=== PATIENT | female | born 1955 | race Caucasian/White ===

== ENCOUNTER → 2018-05-09 | Outpatient (CLI) | payer BC | END | disposition home or self-care (01) | LOC: CFH 10:06 | PROVIDERS: ATTEND Internal Medicine | DX: Z12.31 Encounter for screening mammogram for malignant neoplasm of breast (principal) | CPT/HCPCS: 77063; 77067 ==

== ENCOUNTER 2019-11-21 13:55 | Inpatient (IN) | payer OTHER, MEDICARE ==
[~2019-11-21] VITALS: Ht 162.6 cm; Wt 80.7 kg
--- NOTE | 2019-11-21 14:02 | NUR ---
TO [facility] TODAY WITH RUQ ABD PAIN, "FEELING SICK", PT FOUND TO HAVE ELEVATED LIVER ENZYMES AND HAD NEAR SYNCOPAL EPISODE. PT TO ED VIA [facility] 4MG PO. HX 5MO NO ETOH, GERD. PT PLACED ON MONITOR. CALL LIGHT WITHIN REACH.
--- NOTE | 2019-11-21 14:16 | NUR ---
IV ESTABLISHED AND BLOOD DRAWN AND SENT TO LAB
[2019-11-21] MEDS ORDERED: SODIUM CHLORIDE FLUSH 10ML SYR IVF ONE (14:30)
[2019-11-21 14:37] LABS: MEAN CORPUSCULAR HEMOGLOBIN 28.7 pg (27.0-34.8); MEAN CORPUSCULAR VOLUME 84.2 fL (80-100); MEAN PLATELET VOLUME 10.4 fL (7.4-10.4); PLATELET COUNT 215 x10^3/uL (130-400); RED BLOOD COUNT 4.63 x10^6/uL (3.82-5.3); RED CELL DISTRIBUTION WIDTH 15.1 % (9.6-15.2)
[2019-11-21 14:47] LABS: INTERNATIONAL NORMALIZED RATIO 0.94 (0.93-1.1)
[2019-11-21 15:01] LABS: ALANINE AMINOTRANSFERASE 292 U/L (12-78); ALBUMIN 3.6 g/dL (3.4-5.0); ANION GAP 8 mmol/L (5-15); CALCIUM 9.6 mg/dL (8.5-10.1); CHLORIDE 108 mmol/L (98-107); CREATININE 0.71 mg/dL (0.55-1.02)
[2019-11-21 15:04] LABS: ALKALINE PHOSPHATASE 350 U/L (45-117); BILIRUBIN,TOTAL 8.4 mg/dL (0.2-1.0); TOTAL PROTEIN 7.5 g/dL (6.4-8.2)
[2019-11-21 15:12] LABS: MICROSCOPIC AUTO
[2019-11-21 15:14] LABS: CULTURE INDICATED? YES
--- NOTE | 2019-11-21 15:16 | NUR ---
pt resting in gurney, awaiting results. daughter and son at bedside. no needs at this time.
[2019-11-21 15:23] LABS: MD YES
[2019-11-21 15:34] LABS: BAND#(MANUAL) 0.62 x10^3/uL; BANDS%(MANUAL) 6 % (0-7); LYMPH#(MANUAL) 0.62 x10^3/uL (1-3.4); LYMPHS% (MANUAL) 6 % (22-44); MONOS#(MANUAL) 0.41 x10^3/uL (0.3-2.7); MONOS% (MANUAL) 4 % (2-9); SEG#(MANUAL) 8.65 x10^3/uL (1.8-6.8); SEGS% (MANUAL) 84 % (42-75)
[2019-11-21 15:35] LABS: <PLATELET ESTIMATE> ADEQUATE; <PLT MORPHOLOGY> NORMAL PLT MORPH; <RBC MORPHOLOGY> NORMAL
[2019-11-21] MEDS ORDERED: OMNIPAQUE 350 MG/ML, 100ML BOTTLE ONE ×2 (15:49→18:39)
--- NOTE | 2019-11-21 16:16 | NUR ---
PT RESTING IN [facility], PT TO BE ADMITTED. AWAITING BED PLACEMENT.
[2019-11-21] MEDS ORDERED: SERT100T32 PO (16:25)
[2019-11-21] MEDS ORDERED: NITR100C56 PO (16:25)
[2019-11-21] MEDS ORDERED: ALBU8.5H8 INH (16:25)
[2019-11-21] MEDS ORDERED: BIOT5CAP3 PO (16:25)
[2019-11-21] MEDS ORDERED: LANS15CA60 PO (16:25)
[2019-11-21] MEDS ORDERED: MULT-717 PO (16:25)
[2019-11-21] MEDS: SODIUM CHLORIDE 0.9% 1,000 ML IV SCH (17:14)
--- NOTE | 2019-11-21 17:15 | NUR ---
pt resting in [facility], admitting md at bedside
[2019-11-21] MEDS ORDERED: hydrALAzine 20 MG/ML, 1ML IVPush PRN (17:30)
[2019-11-21] MEDS ORDERED: POLYETHYLENE GLYCOL 17 GM PACKET PO PRN (17:30)
[2019-11-21] MEDS ORDERED: TEMPLATE NON-FORMULARY MED. (Albuterol Sulfate (Proair Hfa) 90 MCG) INH PRN (17:30)
[2019-11-21] MEDS ORDERED: ONDANSETRON 2MG/ML, 2ML IVPush PRN (17:30)
[2019-11-21] MEDS ORDERED: PROMETHAZINE 25 MG/ML, 1ML IM PRN (17:30)
[2019-11-21] MEDS ORDERED: POTASSIUM CHLORIDE 40 MEQ in SODIUM CHLORIDE 0.9% 500 ML IV ONE (17:30)
[2019-11-21] MEDS ORDERED: DOCUSATE 100 MG CAPSULE PO PRN (17:30)
[2019-11-21] MEDS ORDERED: BISACODYL 10 MG SUPP PR PRN (17:30)
[2019-11-21] MEDS ORDERED: ONDANSETRON ODT 4 MG PO PRN (17:30)
--- NOTE | 2019-11-21 17:41 | NUR ---
SUREGON AT BEDSIDE
[2019-11-21 18:04] LABS: FREE T4 (FREE THYROXINE) 1.32 ng/dL (0.76-1.46)
--- NOTE | 2019-11-21 18:12 | NUR ---
REQ FOR IVANS SENT TO PHARMACY
--- NOTE | 2019-11-21 18:21 | NUR ---
pt to ct
--- NOTE | 2019-11-21 18:26 | NUR ---
ATTEMPT TO CALL REPORT X1, NO ANSWER
--- NOTE | 2019-11-21 18:39 | NUR ---
REPORT TO ABEL RN, ROOM DIRTY, RTG WHEN ROOM CLEAN
[2019-11-21] MEDS ORDERED: IBUPROFEN 800 MG TABLET ONE (19:06)
--- NOTE | 2019-11-21 19:11 | NUR ---
PT TEMP 101.3, DR FLORES AWARE. 800 MG IBU GIVEN.
[2019-11-21 19:30] VITALS: BP 144/75
[2019-11-21] MEDS ORDERED: IBUPROFEN 800 MG TABLET PO ONE (19:30)
[2019-11-21 20:11] VITALS: BP 144/75
[2019-11-21] MEDS: ERTAPENEM 1 GM in SODIUM CHLORIDE 0.9% 50 ML IV SCH (20:41)
[2019-11-21] MEDS: morphine SULFATE 10 MG/ML, 1ML IVPush PRN (20:42)
[2019-11-22 02:10] VITALS: BP 108/65
[2019-11-22 04:35] LABS: MEAN CORPUSCULAR HGB CONC 32.3 g/dL (32.4-35.8); MEAN CORPUSCULAR VOLUME 86.7 fL (80-100); MEAN PLATELET VOLUME 10.5 fL (7.4-10.4); PLATELET COUNT 194 x10^3/uL (130-400); RED CELL DISTRIBUTION WIDTH 14.9 % (9.6-15.2)
[2019-11-22 04:46] LABS: ALANINE AMINOTRANSFERASE 242 U/L (12-78); ALBUMIN 2.9 g/dL (3.4-5.0); ANION GAP 6 mmol/L (5-15); CHLORIDE 111 mmol/L (98-107); CREATININE 0.56 mg/dL (0.55-1.02)
[2019-11-22 04:48] LABS: ALKALINE PHOSPHATASE 306 U/L (45-117); BILIRUBIN,TOTAL 8.9 mg/dL (0.2-1.0); CHOL/HDL RATIO 45.5; CHOLESTEROL, TOTAL 364 mg/dL (140-239); HDL CHOL % 2 % (28-40); HDL CHOLESTEROL (DIRECT) 8 mg/dL (40-60); TOTAL PROTEIN 6.3 g/dL (6.4-8.2)
[2019-11-22 04:50] LABS: LDL CHOLESTEROL,CALCULATED 334 mg/dL (54-169); LDL/HDL RATIO 41.8 (0.5-3.0); TRIGLYCERIDES 108 mg/dL (50-200); VLDL CHOLESTEROL 22 mg/dL (0-25)
[2019-11-22 05:47] LABS: MD YES
[2019-11-22 05:48] LABS: BAND#(MANUAL) 0.18 x10^3/uL; BANDS%(MANUAL) 2 % (0-7); LYMPH#(MANUAL) 0.53 x10^3/uL (1-3.4); LYMPHS% (MANUAL) 6 % (22-44); MONOS#(MANUAL) 0.44 x10^3/uL (0.3-2.7); MONOS% (MANUAL) 5 % (2-9); MYELOCYTES# (MANUAL) 0.09 x10^3/uL (0-0); MYELOCYTES% (MANUAL) 1 % (0-0); SEG#(MANUAL) 7.57 x10^3/uL (1.8-6.8); SEGS% (MANUAL) 86 % (42-75)
[2019-11-22 05:49] LABS: <PLATELET ESTIMATE> ADEQUATE; <PLT MORPHOLOGY> NORMAL PLT MORPH; <RBC MORPHOLOGY> NORMAL
[2019-11-22 06:47] LABS: BILIRUBIN, DIRECT 7.3 mg/dL (0.1-0.2)
[2019-11-22 06:48] LABS: BILIRUBIN,INDIRECT 1.8 mg/dL (0.0-2.0); BILIRUBIN,TOTAL 9.1 mg/dL (0.2-1.0)
[2019-11-22 07:42] VITALS: BP 125/77
[2019-11-22] MEDS: PANTOPRAZOLE 40 MG IV IVPush SCH (09:33)
[2019-11-22] MEDS: SERTRALINE 100MG TABLET PO SCH (09:33)
[2019-11-22] MEDS: SODIUM CHLORIDE 0.9% 1,000 ML IV SCH (09:33)
[2019-11-22] MEDS: morphine SULFATE 10 MG/ML, 1ML IVPush PRN ×2 (11:41→19:33)
[2019-11-22 12:54] VITALS: BP 124/75
[2019-11-22] MEDS: OXYcodone IR 5MG TABLET PO PRN ×2 (13:26→22:15)
[2019-11-22] MEDS: LACTATED RINGERS 1,000 ML IV SCH (14:56)
[2019-11-22 18:40] VITALS: BP 115/68
[2019-11-22] MEDS: ERTAPENEM 1 GM in SODIUM CHLORIDE 0.9% 50 ML IV SCH (22:15)
[2019-11-23 00:59] VITALS: BP 106/54
[2019-11-23] MEDS: LACTATED RINGERS 1,000 ML IV SCH ×2 (03:42→21:40)
[2019-11-23] MEDS: morphine SULFATE 10 MG/ML, 1ML IVPush PRN ×3 (03:50→20:31)
[2019-11-23 06:26] LABS: MEAN CORPUSCULAR HEMOGLOBIN 28.6 pg (27.0-34.8); MEAN CORPUSCULAR HGB CONC 33.8 g/dL (32.4-35.8); MEAN CORPUSCULAR VOLUME 84.6 fL (80-100); MEAN PLATELET VOLUME 11.1 fL (7.4-10.4); PLATELET COUNT 175 x10^3/uL (130-400); RED BLOOD COUNT 3.93 x10^6/uL (3.82-5.3); RED CELL DISTRIBUTION WIDTH 15.6 % (9.6-15.2)
[2019-11-23 06:35] LABS: ALBUMIN 2.6 g/dL (3.4-5.0); ANION GAP 7 mmol/L (5-15); CHLORIDE 108 mmol/L (98-107)
[2019-11-23 06:38] LABS: ALANINE AMINOTRANSFERASE 224 U/L (12-78); ALKALINE PHOSPHATASE 314 U/L (45-117); BILIRUBIN,TOTAL 9.1 mg/dL (0.2-1.0); CREATININE 0.54 mg/dL (0.55-1.02); MD YES; TOTAL PROTEIN 6.2 g/dL (6.4-8.2)
[2019-11-23 06:40] LABS: LYMPHS% (MANUAL) 14 % (22-44); MONOS#(MANUAL) 0.34 x10^3/uL (0.3-2.7); MONOS% (MANUAL) 6 % (2-9); SEG#(MANUAL) 4.56 x10^3/uL (1.8-6.8); SEGS% (MANUAL) 80 % (42-75)
[2019-11-23 06:41] LABS: <PLATELET ESTIMATE> ADEQUATE; <RBC MORPHOLOGY> NORMAL
[2019-11-23 06:42] LABS: LARGE PLATELETS 1+
[2019-11-23 06:57] VITALS: BP 123/75
[2019-11-23] MEDS: PANTOPRAZOLE 40 MG IV IVPush SCH (09:01)
[2019-11-23] MEDS: SERTRALINE 100MG TABLET PO SCH (09:01)
[2019-11-23] MEDS ORDERED: DIPHENHYDRAMINE 25 MG CAPSULE PO PRN (12:00)
[2019-11-23] MEDS ORDERED: PROPOFOL 50 ML ONE (13:53)
[2019-11-23] MEDS ORDERED: FENTANYL PF 250 MCG/5ML ONE (13:54)
[2019-11-23] MEDS ORDERED: PROMETHAZINE 25 MG/ML, 1ML IV PRN ×2 (14:30→15:30)
[2019-11-23] MEDS ORDERED: MORPHINE SULFATE 4 MG/ML, 1ML IVPush PRN (14:30)
[2019-11-23] MEDS ORDERED: ONDANSETRON ODT 8 MG PO PRN ×2 (14:30→15:30)
[2019-11-23] MEDS ORDERED: EPHEDRINE 50 MG/ML, 1ML IM PRN ×2 (14:30→15:30)
[2019-11-23] MEDS ORDERED: DIAZEPAM 5 MG/ML, 2ML IVPush PRN ×2 (14:30→15:30)
[2019-11-23] MEDS ORDERED: DIPHENHYDRAMINE 50 MG/ML, 1ML IVPush PRN ×2 (14:30→15:30)
[2019-11-23] MEDS ORDERED: hydrALAzine 20 MG/ML, 1ML IV PRN ×2 (14:30→15:30)
[2019-11-23] MEDS ORDERED: OXYcodone 5 MG/5 ML ORAL.SOL UDC PO PRN (14:30)
[2019-11-23] MEDS ORDERED: FENTANYL PF 100 MCG/2ML IV PRN ×2 (14:30→15:30)
[2019-11-23] MEDS ORDERED: ONDANSETRON 2MG/ML, 2ML IV PRN ×2 (14:30→15:30)
[2019-11-23] MEDS ORDERED: METOPROLOL 1 MG/ML, 5ML IV PRN ×2 (14:30→15:30)
[2019-11-23] MEDS ORDERED: MEPERIDINE/PF 25MG/ML,1ML IVPush PRN (14:30)
[2019-11-23] MEDS ORDERED: EPHEDRINE 50 MG/ML, 1ML IVPush PRN ×2 (14:30→15:30)
[2019-11-23] MEDS ORDERED: MIDAZOLAM 1 MG/ML, 2ML ONE (14:56)
[2019-11-23] MEDS ORDERED: ROCURONIUM 10MG/ML,5ML ONE (14:58)
[2019-11-23] MEDS ORDERED: MIDAZOLAM 1 MG/ML, 2ML IV PRN (15:30)
[2019-11-23] MEDS ORDERED: HYDROmorphone 2 MG/ML, 1ML IVPush PRN (15:30)
[2019-11-23 19:38] VITALS: BP 122/72
[2019-11-23] MEDS ORDERED: MORPHINE SULFATE 4 MG/ML, 1ML ONE (20:28)
[2019-11-23] MEDS: ERTAPENEM 1 GM in SODIUM CHLORIDE 0.9% 50 ML IV SCH (21:32)
[2019-11-24 00:18] VITALS: BP 126/73
[2019-11-24] MEDS: OXYcodone IR 5MG TABLET PO PRN ×3 (00:33→20:51)
[2019-11-24 04:41] LABS: MEAN CORPUSCULAR HEMOGLOBIN 28.6 pg (27.0-34.8); MEAN CORPUSCULAR HGB CONC 33.5 g/dL (32.4-35.8); MEAN CORPUSCULAR VOLUME 85.6 fL (80-100); MEAN PLATELET VOLUME 10.6 fL (7.4-10.4); PLATELET COUNT 198 x10^3/uL (130-400); RED BLOOD COUNT 3.77 x10^6/uL (3.82-5.3); RED CELL DISTRIBUTION WIDTH 15.7 % (9.6-15.2)
[2019-11-24 04:52] LABS: ALANINE AMINOTRANSFERASE 187 U/L (12-78); ALBUMIN 2.4 g/dL (3.4-5.0); ANION GAP 4 mmol/L (5-15); CALCIUM 8.8 mg/dL (8.5-10.1); CHLORIDE 107 mmol/L (98-107); CREATININE 0.55 mg/dL (0.55-1.02)
[2019-11-24 04:54] LABS: ALKALINE PHOSPHATASE 347 U/L (45-117); TOTAL PROTEIN 5.9 g/dL (6.4-8.2)
[2019-11-24 05:08] LABS: MD YES
[2019-11-24 05:11] LABS: BAND#(MANUAL) 0.06 x10^3/uL; BANDS%(MANUAL) 1 % (0-7); LYMPH#(MANUAL) 1.22 x10^3/uL (1-3.4); LYMPHS% (MANUAL) 20 % (22-44); MONOS#(MANUAL) 0.67 x10^3/uL (0.3-2.7); MONOS% (MANUAL) 11 % (2-9); SEG#(MANUAL) 4.15 x10^3/uL (1.8-6.8); SEGS% (MANUAL) 68 % (42-75)
[2019-11-24 05:13] LABS: <PLATELET ESTIMATE> ADEQUATE; <PLT MORPHOLOGY> NORMAL PLT MORPH; <RBC MORPHOLOGY> NORMAL
[2019-11-24 07:23] VITALS: BP 134/72
[2019-11-24] MEDS: PANTOPRAZOLE 40 MG IV IVPush SCH (10:13)
[2019-11-24] MEDS: SERTRALINE 100MG TABLET PO SCH (10:13)
[2019-11-24] MEDS: LACTATED RINGERS 1,000 ML IV SCH (10:13)
[2019-11-24 12:34] VITALS: BP 143/65
[2019-11-24] MEDS ORDERED: LIDOCAINE 1%, 20ML ONE ×2 (12:50→14:15)
[2019-11-24] MEDS ORDERED: MIDAZOLAM 1 MG/ML, 5ML ONE ×2 (13:12→13:13)
[2019-11-24] MEDS ORDERED: FENTANYL PF 100 MCG/2ML ONE (13:12)
[2019-11-24] MEDS ORDERED: NALOXONE 1 MG/ML, 2ML ONE (13:13)
[2019-11-24] MEDS ORDERED: FLUMAZENIL 0.1 MG/1 ML, 5ML ONE (13:13)
[2019-11-24] MEDS ORDERED: DIPHENHYDRAMINE 50 MG/ML, 1ML ONE (13:46)
[2019-11-24] MEDS: morphine SULFATE 10 MG/ML, 1ML IVPush PRN ×2 (15:54→18:47)
[2019-11-24 18:32] VITALS: BP 107/64
[2019-11-24] MEDS: ERTAPENEM 1 GM in SODIUM CHLORIDE 0.9% 50 ML IV SCH (20:51)
[2019-11-25 00:33] VITALS: BP 96/60
[2019-11-25] MEDS: LACTATED RINGERS 1,000 ML IV SCH ×2 (01:48→16:36)
[2019-11-25] MEDS: OXYcodone IR 5MG TABLET PO PRN ×4 (01:48→21:04)
[2019-11-25 07:24] VITALS: BP 101/64
[2019-11-25 07:47] LABS: ALANINE AMINOTRANSFERASE 167 U/L (12-78); ALBUMIN 2.3 g/dL (3.4-5.0); ANION GAP 7 mmol/L (5-15); CALCIUM 8.7 mg/dL (8.5-10.1); CHLORIDE 105 mmol/L (98-107); CREATININE 0.62 mg/dL (0.55-1.02)
[2019-11-25 07:50] LABS: ALKALINE PHOSPHATASE 368 U/L (45-117); BILIRUBIN,TOTAL 5.3 mg/dL (0.2-1.0); TOTAL PROTEIN 5.9 g/dL (6.4-8.2)
[2019-11-25 08:28] LABS: MD YES; MEAN CORPUSCULAR HEMOGLOBIN 28.4 pg (27.0-34.8); MEAN CORPUSCULAR HGB CONC 32.9 g/dL (32.4-35.8); MEAN CORPUSCULAR VOLUME 86.4 fL (80-100); MEAN PLATELET VOLUME 10.3 fL (7.4-10.4); PLATELET COUNT 218 x10^3/uL (130-400); RED BLOOD COUNT 3.66 x10^6/uL (3.82-5.3); RED CELL DISTRIBUTION WIDTH 15.3 % (9.6-15.2)
[2019-11-25 08:29] LABS: BAND#(MANUAL) 0.77 x10^3/uL; BANDS%(MANUAL) 6 % (0-7); MONOS% (MANUAL) 7 % (2-9); SEG#(MANUAL) 10.75 x10^3/uL (1.8-6.8); SEGS% (MANUAL) 84 % (42-75)
[2019-11-25 08:30] LABS: LYMPH#(MANUAL) 0.38 x10^3/uL (1-3.4); LYMPHS% (MANUAL) 3 % (22-44)
[2019-11-25 08:31] LABS: STOMATOCYTES 1+
[2019-11-25 08:32] LABS: <PLATELET ESTIMATE> ADEQUATE; <PLT MORPHOLOGY> NORMAL PLT MORPH
[2019-11-25] MEDS: PANTOPRAZOLE 40 MG IV IVPush SCH (10:28)
[2019-11-25] MEDS: SERTRALINE 100MG TABLET PO SCH (10:28)
[2019-11-25 13:02] VITALS: BP 96/61
[2019-11-25 19:25] VITALS: BP 107/63
[2019-11-25] MEDS: ERTAPENEM 1 GM in SODIUM CHLORIDE 0.9% 50 ML IV SCH (20:59)
[2019-11-25] MEDS: morphine SULFATE 10 MG/ML, 1ML IVPush PRN (22:40)
[2019-11-26] MEDS: OXYcodone IR 5MG TABLET PO PRN ×3 (02:23→17:51)
[2019-11-26 02:26] VITALS: BP 132/76
[2019-11-26] MEDS: LACTATED RINGERS 1,000 ML IV SCH ×2 (04:22→17:53)
[2019-11-26 04:47] LABS: MEAN CORPUSCULAR HEMOGLOBIN 28.3 pg (27.0-34.8); MEAN CORPUSCULAR HGB CONC 33.3 g/dL (32.4-35.8); MEAN CORPUSCULAR VOLUME 84.9 fL (80-100); MEAN PLATELET VOLUME 10.8 fL (7.4-10.4); PLATELET COUNT 230 x10^3/uL (130-400); RED BLOOD COUNT 3.35 x10^6/uL (3.82-5.3); RED CELL DISTRIBUTION WIDTH 15.3 % (9.6-15.2)
[2019-11-26 04:55] LABS: CHLORIDE 104 mmol/L (98-107)
[2019-11-26 05:01] LABS: ALANINE AMINOTRANSFERASE 112 U/L (12-78); ALBUMIN 2.1 g/dL (3.4-5.0); ALKALINE PHOSPHATASE 273 U/L (45-117); ANION GAP 5 mmol/L (5-15); BILIRUBIN,TOTAL 3.8 mg/dL (0.2-1.0); CALCIUM 8.2 mg/dL (8.5-10.1); TOTAL PROTEIN 5.4 g/dL (6.4-8.2)
[2019-11-26 05:05] LABS: MD YES
[2019-11-26 05:07] LABS: <PLATELET ESTIMATE> ADEQUATE; <PLT MORPHOLOGY> NORMAL PLT MORPH; <RBC MORPHOLOGY> NORMAL; LYMPH#(MANUAL) 1.38 x10^3/uL (1-3.4); LYMPHS% (MANUAL) 16 % (22-44); MONOS% (MANUAL) 7 % (2-9); SEG#(MANUAL) 6.62 x10^3/uL (1.8-6.8); SEGS% (MANUAL) 77 % (42-75)
[2019-11-26 07:08] VITALS: BP 120/72
[2019-11-26] MEDS: morphine SULFATE 10 MG/ML, 1ML IVPush PRN ×3 (09:49→21:34)
[2019-11-26] MEDS: PANTOPRAZOLE 40 MG IV IVPush SCH (10:55)
[2019-11-26] MEDS: SERTRALINE 100MG TABLET PO SCH (10:56)
[2019-11-26] MEDS ORDERED: POTASSIUM CHLORIDE 20 MEQ TAB.ER.PRT PO ONE ×2 (11:00→15:00)
[2019-11-26] MEDS: CEFTRIAXONE PMX 2GM/50ML 50 ML IV SCH (11:21)
[2019-11-26 14:55] VITALS: BP 128/72
[2019-11-26 19:16] VITALS: BP 135/76
[2019-11-27 01:31] VITALS: BP 116/70
[2019-11-27 04:36] LABS: MEAN CORPUSCULAR HEMOGLOBIN 28.6 pg (27.0-34.8); MEAN CORPUSCULAR HGB CONC 33.3 g/dL (32.4-35.8); MEAN CORPUSCULAR VOLUME 85.9 fL (80-100); MEAN PLATELET VOLUME 9.6 fL (7.4-10.4); PLATELET COUNT 288 x10^3/uL (130-400); RED BLOOD COUNT 3.43 x10^6/uL (3.82-5.3); RED CELL DISTRIBUTION WIDTH 15.9 % (9.6-15.2)
[2019-11-27 04:41] LABS: ALANINE AMINOTRANSFERASE 87 U/L (12-78); ALBUMIN 2.2 g/dL (3.4-5.0); ANION GAP 5 mmol/L (5-15); CALCIUM 8.7 mg/dL (8.5-10.1); CHLORIDE 107 mmol/L (98-107); CREATININE 0.46 mg/dL (0.55-1.02)
[2019-11-27 04:43] LABS: ALKALINE PHOSPHATASE 247 U/L (45-117); BILIRUBIN,TOTAL 3.1 mg/dL (0.2-1.0); TOTAL PROTEIN 6.1 g/dL (6.4-8.2)
[2019-11-27 05:30] LABS: MD YES
[2019-11-27 05:32] LABS: <RBC MORPHOLOGY> NORMAL; BAND#(MANUAL) 0.07 x10^3/uL; BANDS%(MANUAL) 1 % (0-7); BASOS#(MANUAL) 0.07 x10^3/uL (0-0.1); BASOS% (MANUAL) 1 % (0-1); LYMPH#(MANUAL) 1.68 x10^3/uL (1-3.4); LYMPHS% (MANUAL) 23 % (22-44); MONOS#(MANUAL) 0.22 x10^3/uL (0.3-2.7); MONOS% (MANUAL) 3 % (2-9); REACTIVE LYMPHS # (MANUAL) 0.07 x10^3/uL (0-0); REACTIVE LYMPHS % (MANUAL) 1 % (0-0); SEG#(MANUAL) 5.18 x10^3/uL (1.8-6.8); SEGS% (MANUAL) 71 % (42-75)
[2019-11-27 05:33] LABS: <PLATELET ESTIMATE> ADEQUATE; <PLT MORPHOLOGY> NORMAL PLT MORPH
[2019-11-27 07:39] VITALS: BP 131/75
[2019-11-27] MEDS: PANTOPRAZOLE 40 MG IV IVPush SCH (08:52)
[2019-11-27] MEDS: LACTATED RINGERS 1,000 ML IV SCH (08:53)
[2019-11-27] MEDS: SERTRALINE 100MG TABLET PO SCH (08:53)
[2019-11-27] MEDS ORDERED: HYDROmorphone 2 MG/ML, 1ML IVPush PRN (09:30)
[2019-11-27] MEDS ORDERED: MEPERIDINE/PF 25MG/ML,1ML IVPush PRN (09:30)
[2019-11-27] MEDS ORDERED: hydrALAzine 20 MG/ML, 1ML IV PRN (09:30)
[2019-11-27] MEDS ORDERED: LABETALOL 5MG/ML, 20ML IV PRN (09:30)
[2019-11-27] MEDS ORDERED: PROMETHAZINE 25 MG/ML, 1ML IV PRN (09:30)
[2019-11-27] MEDS ORDERED: FENTANYL PF 100 MCG/2ML IV PRN (09:30)
[2019-11-27] MEDS ORDERED: HALOPERIDOL 5 MG/ML IV PRN (09:30)
[2019-11-27] MEDS ORDERED: LEVO750T6 PO (10:36)
[2019-11-27] MEDS: CEFTRIAXONE PMX 2GM/50ML 50 ML IV SCH (11:52)
[2019-11-27 13:04] VITALS: BP 156/76
[2019-11-27] MEDS: OXYcodone IR 5MG TABLET PO PRN ×2 (13:18→16:48)
[2019-11-27] MEDS ORDERED: OXYC5TAB3 PO (14:17)
== END 2019-11-27 16:57 | disposition home or self-care (01) | DRG 438 ==
LOC: ED 16:40 → EDIP 16:41 → ED 16:57 → 4NW 19:37
PROVIDERS: ADMIT Internal Medicine; ATTEND Hospitalist
PROC: BD42ZZZ Ultrasonography of Stomach (ICD-10-PCS; 2019-11-23)
PROC: BD49ZZZ Ultrasonography of Duodenum (ICD-10-PCS; 2019-11-23)
PROC: 0F9430Z Drainage of Gallbladder with Drainage Device, Percutaneous Approach (ICD-10-PCS; 2019-11-23)
PROC: 0DB98ZX Excision of Duodenum, Via Natural or Artificial Opening Endoscopic, Diagnostic (ICD-10-PCS; principal; 2019-11-23 14:00)
DX: K86.89 Other specified diseases of pancreas (principal); K83.1 Obstruction of bile duct; K83.09 Other cholangitis; N39.0 Urinary tract infection, site not specified; R78.81 Bacteremia; K31.5 Obstruction of duodenum; B96.1 Klebsiella pneumoniae [K. pneumoniae] as the cause of diseases classified elsewhere; D64.9 Anemia, unspecified; E87.6 Hypokalemia; F41.9 Anxiety disorder, unspecified; K21.9 Gastro-esophageal reflux disease without esophagitis; N28.1 Cyst of kidney, acquired; Z82.49 Family history of ischemic heart disease and other diseases of the circulatory system; Z88.2 Allergy status to sulfonamides; Z88.8 Allergy status to other drugs, medicaments and biological substances; K57.10 Diverticulosis of small intestine without perforation or abscess without bleeding
CPT/HCPCS: 36415; 84145; 99285; J3490; 47534; 71275; 74177; 80053; 80061; 81001; 82140; 82247; 82248; 83036; 83605; 83690; 83735; 84100; 84439; 84443; 85025; 85610; 86301; 87040; 87077; 87086; 87186; 88172; 88173; 88305; 93005; 99156; 99157; G0378; J0696; J1335; J2250; J2704; J3010; J3480; Q9967; C1729; C1751; C1769; C9113; J1200; J2270; J2310; J7030; J7040; J7120

== ENCOUNTER 2019-12-04 17:23 | Inpatient (IN) | payer OTHER, MEDICARE ==
[~2019-12-04] VITALS: Ht 162.6 cm; Wt 76.8 kg
[~2019-12-04 17:23] MED LIST: ALBU8.5H8 INH; BIOT5CAP3 PO; LANS15CA60 PO; LEVO750T6 PO; MULT-717 PO; NITR100C56 PO; OXYC5TAB3 PO; SERT100T32 PO
--- NOTE | 2019-12-04 20:37 | NUR ---
pt called to room from lobby
--- NOTE | 2019-12-04 20:57 | NUR ---
First contact with patient. Patient presents to ER c/o tingling to lower extremities and extreme nausea. Patient has a recent hospitalization x1week ago with pancreatic CA. She has a bile bag in place. She vomited twice, the last time being yesterday evening. Patient states she had a PET scan today and urinated immediately after but has not been urinating much the last week. Patient also has not had a BM x3-4 days. She last ate today at 1330. Patient is in NAD. Respirations even and unlabored.
[2019-12-04] MEDS ORDERED: ONDANSETRON 2MG/ML, 2ML ONE (22:23)
[2019-12-04] MEDS ORDERED: ONDANSETRON 2MG/ML, 2ML IVPush ONE (22:30)
[2019-12-04] MEDS ORDERED: SODIUM CHLORIDE 0.9% 1,000ML IVBOLUS ONE (22:30)
[2019-12-04 22:47] LABS: CULTURE INDICATED? YES; MICROSCOPIC INDICATED
[2019-12-04 22:50] LABS: MEAN CORPUSCULAR HEMOGLOBIN 28.1 pg (27.0-34.8); MEAN CORPUSCULAR HGB CONC 33.6 g/dL (32.4-35.8); MEAN CORPUSCULAR VOLUME 83.5 fL (80-100); RED BLOOD COUNT 5.88 x10^6/uL (3.82-5.3)
[2019-12-04 22:54] LABS: ALANINE AMINOTRANSFERASE 154 U/L (12-78); ALBUMIN 4.4 g/dL (3.4-5.0); ANION GAP 12 mmol/L (5-15); CALCIUM 10.4 mg/dL (8.5-10.1); CHLORIDE 93 mmol/L (98-107); CREATININE 3.25 mg/dL (0.55-1.02)
[2019-12-04 22:57] LABS: ALKALINE PHOSPHATASE 253 U/L (45-117); BILIRUBIN,TOTAL 2.6 mg/dL (0.2-1.0); TOTAL PROTEIN 9.8 g/dL (6.4-8.2)
[2019-12-04 23:05] LABS: BASOPHILS # (AUTO) 0.03 x10^3/uL (0-0.1); BASOPHILS % (AUTO) 0 % (0-1); EOSINOPHILS # (AUTO) 0.12 x10^3/uL (0-0.4); EOSINOPHILS % (AUTO) 1 % (1-7); LYMPHOCYTES # (AUTO) 1.29 x10^3/uL (1-3.4); LYMPHOCYTES % (AUTO) 7 % (22-44); MD SCAN; MEAN PLATELET VOLUME 9.9 fL (7.4-10.4); MONOCYTES # (AUTO) 1.23 x10^3/uL (0.2-0.8); MONOCYTES % (AUTO) 7 % (2-9); NEUTROPHILS # (AUTO) 15.33 x10^3/uL (1.8-6.8); NEUTROPHILS % (AUTO) 85 % (42-75); PLATELET COUNT 456 x10^3/uL (130-400)
[2019-12-04] MEDS ORDERED: SODIUM CHLORIDE 0.9% 1,000 ML IV ONE (23:35)
--- NOTE | 2019-12-04 23:43 | NUR ---
Patient aware of admit order. Resting in [place] with no complaints.
[2019-12-05] MEDS ORDERED: MORPHINE SULFATE 4 MG/ML, 1ML IVPush PRN
[2019-12-05] MEDS ORDERED: SODIUM CHLORIDE 0.9% 1,000ML IVBOLUS ONE
[2019-12-05 00:14] VITALS: BP 131/57
[2019-12-05 00:39] VITALS: BP 131/57
[2019-12-05] MEDS ORDERED: ONDANSETRON 2MG/ML, 2ML IVPush PRN ×2 (02:30)
[2019-12-05] MEDS ORDERED: PROMETHAZINE 25 MG/ML, 1ML IM PRN (02:30)
[2019-12-05] MEDS ORDERED: morphine SULFATE 10 MG/ML, 1ML IVPush PRN (02:30)
[2019-12-05] MEDS ORDERED: ACETAMINOPHEN 325 MG TABLET PO PRN (02:30)
[2019-12-05] MEDS ORDERED: BISACODYL 10 MG SUPP PR PRN (02:30)
[2019-12-05] MEDS: SODIUM CHLORIDE 0.9% 1,000 ML IV SCH ×5 (03:10→17:04)
[2019-12-05] MEDS: CEFTRIAXONE PMX 1GM/50ML 50 ML IV SCH (03:15)
[2019-12-05] MEDS: HEPARIN 5,000 UNITS/ML, 1ML SQ SCH ×3 (04:07→21:11)
[2019-12-05 04:37] LABS: INTERNATIONAL NORMALIZED RATIO 1.46 (0.93-1.1); PROTHROMBIN TIME 15.5 Seconds (9.6-11.5)
[2019-12-05 07:03] VITALS: BP 123/73
[2019-12-05 07:09] LABS: MEAN CORPUSCULAR HEMOGLOBIN 28.4 pg (27.0-34.8); MEAN CORPUSCULAR HGB CONC 33.8 g/dL (32.4-35.8); MEAN CORPUSCULAR VOLUME 83.8 fL (80-100); RED BLOOD COUNT 5.13 x10^6/uL (3.82-5.3); RED CELL DISTRIBUTION WIDTH 16.3 % (9.6-15.2)
[2019-12-05 07:19] LABS: ALANINE AMINOTRANSFERASE 130 U/L (12-78); ALBUMIN 3.5 g/dL (3.4-5.0); ANION GAP 16 mmol/L (5-15); CALCIUM 8.8 mg/dL (8.5-10.1); CHLORIDE 101 mmol/L (98-107); CREATININE 2.57 mg/dL (0.55-1.02)
[2019-12-05 07:21] LABS: ALKALINE PHOSPHATASE 200 U/L (45-117); BILIRUBIN,TOTAL 2.3 mg/dL (0.2-1.0); TOTAL PROTEIN 8.4 g/dL (6.4-8.2)
[2019-12-05 07:37] LABS: BASOPHILS # (AUTO) 0.02 x10^3/uL (0-0.1); BASOPHILS % (AUTO) 0 % (0-1); EOSINOPHILS # (AUTO) 0.17 x10^3/uL (0-0.4); EOSINOPHILS % (AUTO) 1 % (1-7); LYMPHOCYTES # (AUTO) 1.46 x10^3/uL (1-3.4); LYMPHOCYTES % (AUTO) 9 % (22-44); MD SCAN; MEAN PLATELET VOLUME 11.1 fL (7.4-10.4); MONOCYTES # (AUTO) 1.28 x10^3/uL (0.2-0.8); MONOCYTES % (AUTO) 8 % (2-9); NEUTROPHILS # (AUTO) 13.39 x10^3/uL (1.8-6.8); NEUTROPHILS % (AUTO) 82 % (42-75); PLATELET COUNT 383 x10^3/uL (130-400)
[2019-12-05] MEDS: PANTOPROZOLE 40MG TABLET PO SCH (09:01)
[2019-12-05] MEDS: POLYETHYLENE GLYCOL 17 GM PACKET PO SCH (09:01)
[2019-12-05 12:42] VITALS: BP 118/58
[2019-12-05 19:34] VITALS: BP 103/66
[2019-12-06 01:00] VITALS: BP 102/52
[2019-12-06] MEDS: SODIUM CHLORIDE 0.9% 1,000 ML IV SCH ×2 (01:10→19:50)
[2019-12-06] MEDS: CEFTRIAXONE PMX 1GM/50ML 50 ML IV SCH (02:46)
[2019-12-06] MEDS: HEPARIN 5,000 UNITS/ML, 1ML SQ SCH ×2 (04:31→17:37)
[2019-12-06 05:01] LABS: BASOPHILS # (AUTO) 0.02 x10^3/uL (0-0.1); BASOPHILS % (AUTO) 0 % (0-1); EOSINOPHILS % (AUTO) 0 % (1-7); LYMPHOCYTES # (AUTO) 1.38 x10^3/uL (1-3.4); LYMPHOCYTES % (AUTO) 25 % (22-44); MD NO; MEAN CORPUSCULAR HEMOGLOBIN 28.5 pg (27.0-34.8); MEAN CORPUSCULAR HGB CONC 34.1 g/dL (32.4-35.8); MEAN CORPUSCULAR VOLUME 83.5 fL (80-100); MEAN PLATELET VOLUME 10.3 fL (7.4-10.4); MONOCYTES # (AUTO) 0.63 x10^3/uL (0.2-0.8); MONOCYTES % (AUTO) 11 % (2-9); NEUTROPHILS # (AUTO) 3.59 x10^3/uL (1.8-6.8); NEUTROPHILS % (AUTO) 64 % (42-75); PLATELET COUNT 218 x10^3/uL (130-400); RED CELL DISTRIBUTION WIDTH 16.4 % (9.6-15.2)
[2019-12-06 05:02] LABS: ALANINE AMINOTRANSFERASE 79 U/L (12-78); ALBUMIN 2.6 g/dL (3.4-5.0); ANION GAP 8 mmol/L (5-15); CALCIUM 8.2 mg/dL (8.5-10.1); CHLORIDE 114 mmol/L (98-107); CREATININE 1.07 mg/dL (0.55-1.02)
[2019-12-06 05:06] LABS: ALKALINE PHOSPHATASE 131 U/L (45-117); BILIRUBIN,TOTAL 1.4 mg/dL (0.2-1.0); TOTAL PROTEIN 6.1 g/dL (6.4-8.2)
[2019-12-06 07:56] VITALS: BP 102/64
[2019-12-06] MEDS: POLYETHYLENE GLYCOL 17 GM PACKET PO SCH (10:03)
[2019-12-06] MEDS: PANTOPROZOLE 40MG TABLET PO SCH (10:03)
[2019-12-06] MEDS: SERTRALINE 100MG TABLET PO SCH (10:03)
[2019-12-06] MEDS ORDERED: OMNIPAQUE 350 MG/ML, 100ML BOTTLE ONE (11:17)
[2019-12-06 13:55] VITALS: BP 110/67
[2019-12-06 19:06] VITALS: BP 108/64
[2019-12-06] MEDS: OXYcodone IR 5MG TABLET PO PRN (19:51)
[2019-12-07] MEDS: OXYcodone IR 5MG TABLET PO PRN (00:21)
[2019-12-07] MEDS: HEPARIN 5,000 UNITS/ML, 1ML SQ SCH ×3 (00:22→09:17)
[2019-12-07 00:33] VITALS: BP 115/53
[2019-12-07] MEDS: SODIUM CHLORIDE 0.9% 1,000 ML IV SCH (02:04)
[2019-12-07] MEDS: CEFTRIAXONE PMX 1GM/50ML 50 ML IV SCH (02:04)
[2019-12-07 04:54] LABS: ALANINE AMINOTRANSFERASE 58 U/L (12-78); ALBUMIN 2.5 g/dL (3.4-5.0); ANION GAP 7 mmol/L (5-15); CALCIUM 8.1 mg/dL (8.5-10.1); CHLORIDE 113 mmol/L (98-107)
[2019-12-07 04:56] LABS: ALKALINE PHOSPHATASE 114 U/L (45-117); BILIRUBIN,TOTAL 1.4 mg/dL (0.2-1.0); TOTAL PROTEIN 5.7 g/dL (6.4-8.2)
[2019-12-07 04:58] LABS: BASOPHILS % (AUTO) 0 % (0-1); EOSINOPHILS % (AUTO) 0 % (1-7); LYMPHOCYTES # (AUTO) 0.21 x10^3/uL (1-3.4); LYMPHOCYTES % (AUTO) 4 % (22-44); MD NO; MEAN CORPUSCULAR HEMOGLOBIN 28.9 pg (27.0-34.8); MEAN CORPUSCULAR HGB CONC 34.6 g/dL (32.4-35.8); MEAN CORPUSCULAR VOLUME 83.5 fL (80-100); MONOCYTES % (AUTO) 5 % (2-9); NEUTROPHILS # (AUTO) 5.35 x10^3/uL (1.8-6.8); NEUTROPHILS % (AUTO) 91 % (42-75); PLATELET COUNT 149 x10^3/uL (130-400); RED BLOOD COUNT 3.55 x10^6/uL (3.82-5.3)
[2019-12-07] MEDS ORDERED: ONDA4TAB7 PO (07:59)
[2019-12-07] MEDS ORDERED: OXYC5TAB3 PO (07:59)
[2019-12-07] MEDS ORDERED: CEFD300C37 PO (08:03)
[2019-12-07 08:16] VITALS: BP 112/68
[2019-12-07] MEDS: SERTRALINE 100MG TABLET PO SCH (09:16)
[2019-12-07] MEDS: PANTOPROZOLE 40MG TABLET PO SCH (09:16)
[2019-12-07] MEDS: POLYETHYLENE GLYCOL 17 GM PACKET PO SCH (09:16)
== END 2019-12-07 11:15 | disposition home or self-care (01) | DRG 438 ==
LOC: ED 23:37 → EDIP 23:57 → 4NW 12-05 00:04 → DCLOUNGE 12-07 11:00
PROVIDERS: ADMIT Student in an Organized Health Care Education/Training Program; ATTEND Family Medicine
DX: K85.00 Idiopathic acute pancreatitis without necrosis or infection (principal); N17.0 Acute kidney failure with tubular necrosis; C25.9 Malignant neoplasm of pancreas, unspecified; E87.1 Hypo-osmolality and hyponatremia; E87.2 Acidosis; N39.0 Urinary tract infection, site not specified; D75.1 Secondary polycythemia; E83.52 Hypercalcemia; E86.0 Dehydration; E86.1 Hypovolemia; F41.9 Anxiety disorder, unspecified; K21.9 Gastro-esophageal reflux disease without esophagitis; K59.00 Constipation, unspecified; Z82.49 Family history of ischemic heart disease and other diseases of the circulatory system; Z88.2 Allergy status to sulfonamides; Z88.8 Allergy status to other drugs, medicaments and biological substances
CPT/HCPCS: 36415; 74170; 80053; 81001; 82330; 82550; 83690; 83735; 84100; 84145; 85025; 85610; 87040; 87086; 87106; 96374; 99291; G0378; J0696; J1644; J2405; Q9967; J7030

== ENCOUNTER 2020-07-11 15:25 | Outpatient (CLI) | payer OTHER, MEDICARE ==
[~2020-07-11 15:25] MED LIST changes: +CEFD300C37 PO; +ONDA4TAB7 PO
[2020-07-11] MEDS ORDERED: DRON10CA5 PO (16:00)
[2020-07-11] MEDS ORDERED: LIPA1CAP45 PO (16:00)
[2020-07-11] MEDS ORDERED: ONDA4TAB13 SL (16:00)
[2020-07-11] MEDS ORDERED: DICY10CA3 PO (16:00)
== END 2020-07-11 23:59 | disposition home or self-care (01) ==
LOC: STAR 15:25
PROVIDERS: ATTEND Internal Medicine
DX: Z01.818 Encounter for other preprocedural examination (principal); Z20.828 Contact with and (suspected) exposure to other viral communicable diseases; C25.9 Malignant neoplasm of pancreas, unspecified
CPT/HCPCS: 36415; 87635; 93005

== ENCOUNTER 2020-07-16 05:24 | Day surgery (SDC) | payer MEDICARE, OTHER ==
[~2020-07-16] VITALS: Ht 162.6 cm; Wt 57.4 kg
[~2020-07-16 05:24] MED LIST changes: +DICY10CA3 PO; +DRON10CA5 PO; +LIPA1CAP45 PO; +ONDA4TAB13 SL
[2020-07-16] MEDS ORDERED: LACTATED RINGERS 1,000 ML IV SCH (06:21)
[2020-07-16 06:23] VITALS: BP 110/72
[2020-07-16] MEDS ORDERED: CHLORHEXIDINE 15 ML UDC MM ONE (06:30)
[2020-07-16] MEDS ORDERED: PROPOFOL 10 MG/ML, 20ML ONE ×3 (07:04→08:20)
== END 2020-07-16 09:30 | disposition home or self-care (01) ==
LOC: OUT 05:24
PROVIDERS: ATTEND Internal Medicine
DX: K91.89 Other postprocedural complications and disorders of digestive system (principal); K31.1 Adult hypertrophic pyloric stenosis; C25.0 Malignant neoplasm of head of pancreas; F41.9 Anxiety disorder, unspecified; K21.9 Gastro-esophageal reflux disease without esophagitis; Z88.1 Allergy status to other antibiotic agents; Z88.2 Allergy status to sulfonamides; Z98.890 Other specified postprocedural states; Z79.899 Other long term (current) drug therapy; Z87.898 Personal history of other specified conditions; Z72.89 Other problems related to lifestyle; Z82.49 Family history of ischemic heart disease and other diseases of the circulatory system
CPT/HCPCS: 44363; 44369; 71045; J2704; J7120; 76000

== ENCOUNTER → 2020-11-27 | Outpatient (CLI) | payer OTHER ==
[~2020-11-27] MED LIST changes: +LIDO73LI TD; +LIPA1CAP61 PO; +OXYC5CAP2 PO; -OXYC5TAB3 PO; +OXYC5TAB98 PO; +PROC10TA78 PO
== END | disposition home or self-care (01) ==
LOC: STAR 13:20
PROVIDERS: ATTEND Internal Medicine
DX: Z01.812 Encounter for preprocedural laboratory examination (principal); Z20.822 Contact with and (suspected) exposure to COVID-19; C78.7 Secondary malignant neoplasm of liver and intrahepatic bile duct; R10.9 Unspecified abdominal pain
CPT/HCPCS: 87635; 93005

== ENCOUNTER 2020-12-03 09:05 | Day surgery (SDC) | payer OTHER ==
[~2020-12-03] VITALS: Ht 162.6 cm; Wt 47.0 kg
[2020-12-03 09:19] VITALS: BP 111/64
[2020-12-03] MEDS ORDERED: CHLORHEXIDINE 15 ML UDC MM STA (09:23)
[2020-12-03] MEDS ORDERED: LACTATED RINGERS 1,000 ML IV SCH (09:30)
[2020-12-03] MEDS ORDERED: BUPIVACAINE 0.25% ONE ×2 (09:53→10:39)
[2020-12-03] MEDS ORDERED: PROPOFOL 10 MG/ML, 20ML ONE (09:59)
[2020-12-03] MEDS ORDERED: LIDOCAINE-MPF 2% ,5ML ONE ×2 (09:59)
[2020-12-03] MEDS ORDERED: FENTANYL PF 100 MCG/2ML ONE (09:59)
[2020-12-03] MEDS ORDERED: FENTANYL PF 100 MCG/2ML IV PRN (10:30)
[2020-12-03] MEDS ORDERED: ONDANSETRON 2MG/ML, 2ML IVPush PRN (10:30)
== END 2020-12-03 12:30 | disposition home or self-care (01) ==
LOC: OUT 09:05
PROVIDERS: ATTEND Internal Medicine
DX: C25.9 Malignant neoplasm of pancreas, unspecified (principal); Z79.891 Long term (current) use of opiate analgesic; Z79.899 Other long term (current) drug therapy; Z88.2 Allergy status to sulfonamides
CPT/HCPCS: 43259; 64680; J2704; J3010; J7120